=== PATIENT | female | born 1955 | race Caucasian/White ===

== ENCOUNTER → 2017-04-01 | Outpatient (CLI) | payer BC ==
[2017-04-01] MEDS: REGADENOSON 0.4 MG/5 ML DISP.SYRIN. IV (10:52)
== END | disposition home or self-care (01) ==
LOC: NM 08:56
DX: I48.91 Unspecified atrial fibrillation (principal); I10 Essential (primary) hypertension; G40.909 Epilepsy, unspecified, not intractable, without status epilepticus; Z79.01 Long term (current) use of anticoagulants
CPT/HCPCS: 78452; 93017; 96374; 96375; 96376; A9500; J2785

== ENCOUNTER → 2017-05-30 | Day surgery (SDC) | payer BC ==
[~2017-05-30] MED LIST: BENZOCAINE ONE 20% MUCOSAL SPRAY.; LIDOCAINE 1% PF 2 ML VIAL. ID; LIDOCAINE 2% TOPICAL JELLY 5GM TUBE. TP; LIDOCAINE 2% VISCOUS 15 ML SOLUTION.; MORPHINE SULFATE 4 MG/ML DISP.SYRIN. IV; ONDANSETRON PF 4 MG/2 ML VIAL. IV; PROCHLORPERAZINE 10 MG/2 ML VIAL. IV; PROPOFOL 20 ML IV; fentaNYL PF VIAL 100 MCG/2 ML VIAL IV
[2017-05-30] MEDS: IV RINGERS,LACTATED 1000ML 1,000 ML IV (10:15)
[2017-05-30] MEDS: BENZOCAINE ONE 20% MUCOSAL SPRAY. MM (12:16)
[2017-05-30] MEDS: LIDOCAINE 2% VISCOUS 15 ML SOLUTION. SWSW (12:16)
== END | disposition home or self-care (01) ==
LOC: SURG 09:31
DX: I08.1 Rheumatic disorders of both mitral and tricuspid valves (principal); I48.0 Paroxysmal atrial fibrillation; Z96.659 Presence of unspecified artificial knee joint; Z79.899 Other long term (current) drug therapy
CPT/HCPCS: 93312; 93325; J2704